=== PATIENT | female | born 1970 ===

== ENCOUNTER → 2024-03-08 | Outpatient (CLI) | payer OTHER | LOC: CSHMRI 14:59 | PROVIDERS: ATTEND Family Medicine | DX: S49.92XD Unspecified injury of left shoulder and upper arm, subsequent encounter (principal); S46.012A Strain of muscle(s) and tendon(s) of the rotator cuff of left shoulder, initial encounter; M67.814 Other specified disorders of tendon, left shoulder; M19.012 Primary osteoarthritis, left shoulder; M89.8X1 Other specified disorders of bone, shoulder; M25.412 Effusion, left shoulder ==